=== PATIENT | female | born 1960 | race Caucasian/White ===

== ENCOUNTER 2017-10-26 05:56 | Emergency (ER) | payer OTHER | END 2017-10-26 06:48 | disposition home or self-care (01) | LOC: FTE 05:56 | DX: L04.0 Acute lymphadenitis of face, head and neck (principal) | CPT/HCPCS: 99283 ==

== ENCOUNTER 2018-02-01 11:04 | Day surgery (SDC) | payer OTHER ==
[2018-02-01] MEDS: BUPIVACAINE 0.25% (MPF) 30 ML INJ INJ
[2018-02-01] MEDS ORDERED: BUPIVACAINE 0.25% (MPF) 30 ML INJ (14:03)
[2018-02-01] MEDS ORDERED: PROPOFOL 20 ML (14:11)
[2018-02-01] MEDS ORDERED: FENTAnyl 50 MCG/ML VIAL (14:11)
[2018-02-01] MEDS ORDERED: MIDAZOLAM 1 MG/ML 2 ML INJ (14:11)
[2018-02-01] MEDS ORDERED: ONDANSETRON 4 MG INJ (14:11)
[2018-02-01] MEDS ORDERED: METOCLOPRAMIDE 10 MG INJ (14:11)
[2018-02-01] MEDS ORDERED: CEFAZOLIN 1 GM INJ (14:14)
[2018-02-01] MEDS ORDERED: HYDROCODONE/APAP (5/325) TAB PO (15:00)
[2018-02-01] MEDS ORDERED: HYDROmorphONE 1 MG/5 ML IV SYRINGE IV ×3 (15:25→15:30)
[2018-02-01] MEDS: HYDROmorphONE 1 MG/5 ML IV SYRINGE IV ×2 (15:28→15:33)
[2018-02-01] MEDS ORDERED: ONDANSETRON 4 MG INJ IV (15:30)
== END 2018-02-01 16:57 | disposition home or self-care (01) ==
LOC: SDS 11:04
DX: C77.3 Secondary and unspecified malignant neoplasm of axilla and upper limb lymph nodes (principal)
CPT/HCPCS: 14041; 88307; 88341; 88342

== ENCOUNTER 2018-06-11 06:42 | Day surgery (SDC) | payer OTHER ==
[2018-06-11] MEDS: CLINDAMYCIN 600 MG/D5W (PMX) 50 ML IVPB (11:00)
[2018-06-11] MEDS: MIDAZOLAM 1 MG/ML 2 ML INJ ×2 (11:15→11:26)
[2018-06-11] MEDS: CEFAZOLIN 1 GM/50 ML (PMX) 50 ML IVPB (11:25)
[2018-06-11] MEDS: LIDOCAINE 1%/EPI (1:100,000) (MDV) 20 ML (11:25)
[2018-06-11] MEDS: FENTAnyl 50 MCG/ML VIAL ×2 (11:26→11:30)
[2018-06-11] MEDS: HEPARIN 1000 UNITS/ML 10 ML INJ (11:30)
[2018-06-11] MEDS: POLYMYXIN/BACITRACIN 1L IRRIG IRR (11:45)
[2018-06-11] MEDS ORDERED: HYDROCODONE/APAP (5/325) TAB PO (12:30)
== END 2018-06-11 13:20 | disposition home or self-care (01) ==
LOC: SDS 13:20
DX: C43.9 Malignant melanoma of skin, unspecified (principal)
CPT/HCPCS: 36561; 76942

== ENCOUNTER 2018-07-21 12:36 | Emergency (ER) | payer OTHER ==
[2018-07-21 14:46] LABS: ADD MAN DIFF? NO
[2018-07-21 14:50] LABS: BASOPHILS % 0.4 % (0.0-2.0); EOSINOPHILS # 0.2 10^3/ul (0.0-0.5); EOSINOPHILS % 2.5 % (0.0-7.0); HEMATOCRIT 39.7 % (37.0-47.0); HEMOGLOBIN 12.9 g/dl (12.0-16.0); LYMPHOCYTES # 1.6 10^3/ul (0.8-2.9); LYMPHOCYTES % 22.9 % (15.0-51.0); MEAN CORPUSCULAR HEMOGLOBIN 29.8 pg (29.0-33.0); MEAN CORPUSCULAR HGB CONC 32.5 g/dl (32.0-37.0); MEAN CORPUSCULAR VOLUME 91.7 fl (82.0-101.0); MEAN PLATELET VOLUME 9.4 fl (7.4-10.4); MONOCYTE # 0.6 10^3/ul (0.3-0.9); MONOCYTES % 7.9 % (0.0-11.0); NEUTROPHIL # 4.7 10^3/ul (1.6-7.5); NEUTROPHILS % 66.2 % (39.0-77.0); PLATELET COUNT 291 10^3/UL (140-415); RED BLOOD COUNT 4.33 10^6/ul (4.20-5.40); RED CELL DISTRIBUTION WIDTH 12.2 % (11.5-14.5)
[2018-07-21 14:50] LABS: WHITE BLOOD COUNT 7.2 10^3/ul (4.8-10.8)
[2018-07-21 14:53] LABS: ADD UMIC YES; UR ASCORBIC ACID NEGATIVE (NEGATIVE); UR BILIRUBIN (Dip) NEGATIVE (NEGATIVE); UR BLOOD (Dip) NEGATIVE (NEGATIVE); UR CLARITY CLEAR (CLEAR); UR COLOR COLORLESS (YELLOW); UR GLUCOSE (Dip) NEGATIVE (NEGATIVE); UR KETONES (Dip) NEGATIVE (NEGATIVE); UR LEUKOCYTE ESTERASE (Dip) TRACE Leu/ul (NEGATIVE); UR NITRITE (Dip) NEGATIVE (NEGATIVE); UR RBC 0 /HPF (0-5); UR SPECIFIC GRAVITY (Dip) 1.003 (1.003-1.030); UR TOTAL PROTEIN (Dip) NEGATIVE (NEGATIVE); UR UROBILINOGEN (Dip) NEGATIVE (NEGATIVE); UR WBC 1 /HPF (0-5)
[2018-07-21 15:10] LABS: ALANINE AMINOTRANSFERASE 31 IU/L (13-69); ALBUMIN 4.4 g/dl (3.3-4.9); ALBUMIN/GLOBULIN RATIO 1.37; ALKALINE PHOSPHATASE 104 IU/L (42-121); ANION GAP 14 (5-13); ASPARTATE AMINO TRANSFERASE 41 IU/L (15-46); BILIRUBIN,INDIRECT 0.4 mg/dl (0-1.1); BILIRUBIN,TOTAL 0.4 mg/dl (0.2-1.3); BLOOD UREA NITROGEN 12 mg/dl (7-20); CALCIUM 9.5 mg/dl (8.4-10.2); CARBON DIOXIDE 22 mmol/L (21-31); CHLORIDE 107 mmol/L (97-110); CREATININE 0.65 mg/dl (0.44-1.00); Estimated GFR > 60 mL/min (>60); GLUCOSE 86 mg/dl (70-220); POTASSIUM 4.2 mmol/L (3.5-5.1); SODIUM 143 mmol/L (135-144); TOTAL PROTEIN 7.6 g/dl (6.1-8.1)
== END 2018-07-21 16:18 | disposition home or self-care (01) ==
LOC: FTE 12:36
DX: N64.4 Mastodynia (principal)
CPT/HCPCS: 36415; 76642; 80053; 81001; 83605; 85025; 93005; 99285-25